=== PATIENT | male | born 1985 | race Two or more races ===

== ENCOUNTER 2017-08-11 09:02 | Emergency (ER) | payer SELFPAY ==
[~2017-08-11] VITALS: Ht 172.7 cm; Wt 83.8 kg
[2017-08-11 09:05] VITALS: BP 131/87
== END 2017-08-11 10:00 | disposition home or self-care (01) ==
LOC: ED 09:54
DX: L24.5 Irritant contact dermatitis due to other chemical products (principal)
CPT/HCPCS: 99283